=== PATIENT | male | born 1930 | race Caucasian/White ===

== ENCOUNTER 2018-01-15 12:06 | Outpatient (CLI) | payer MEDICARE | END 2018-01-15 12:07 | disposition EMS.NT | LOC: EMS 12:06 | PROVIDERS: ATTEND Surgery | DX: S61.411A Laceration without foreign body of right hand, initial encounter (principal); W18.11XA Fall from or off toilet without subsequent striking against object, initial encounter; Y92.031 Bathroom in apartment as the place of occurrence of the external cause ==

== ENCOUNTER 2018-06-28 12:04 | Outpatient (CLI) | payer MEDICARE | END 2018-06-28 12:05 | disposition short-term general hospital (02) | LOC: EMS 12:04 | PROVIDERS: ATTEND Surgery | DX: R51 Headache (principal); R41.82 Altered mental status, unspecified | CPT/HCPCS: A0425; A0427 ==

== ENCOUNTER 2018-07-03 07:08 | Outpatient (CLI) | payer MEDICARE | END 2018-07-03 07:09 | disposition short-term general hospital (02) | LOC: EMS 07:08 | PROVIDERS: ATTEND Surgery | DX: R46.4 Slowness and poor responsiveness (principal); R73.09 Other abnormal glucose | CPT/HCPCS: A0425; A0427 ==